=== PATIENT | male | born 1975 | race Caucasian/White ===

== ENCOUNTER 2020-12-10 08:29 | Day surgery (SDC) | payer SELFPAY ==
[~2020-12-10] VITALS: Ht 188 cm; Wt 163.0 kg
[2020-12-10 09:00] VITALS: BP 154/105; PULSE 66; TEMP 97.8
[2020-12-10] MEDS ORDERED: OMEGA-3 1000 MG1 CAP PO (09:03)
[2020-12-10] MEDS ORDERED: ASPIRIN 81M81 MG/TA2 PO (09:03)
--- NOTE | 2020-12-10 09:15 | NUR ---
The patient's blood pressure is elevated on admission and Vanessa Earl CRNA was notified and has no further orders for the nurse at this time.
[2020-12-10] MEDS ORDERED: NORCO 325 MG-7.1 TAB PO (11:38)
[2020-12-10 12:33] VITALS: BP 152/90; PULSE 51; TEMP 98
--- NOTE | 2020-12-10 12:33 | NUR ---
The patient arrived back to [facility] from the recovery room at this time. The patient appears drowsy but arouses easily to his name. The patient has oxygen in place at 2L per nasal cannula. Post operative vital signs were started at this time. The patient's is at bedside at this time. Call light is within reach. Will continue to monitor the patient.
[2020-12-10 12:48] VITALS: BP 145/90; PULSE 52
--- NOTE | 2020-12-10 12:48 | NUR ---
The patient appears more alert at this time. The patient is eating and drinking the good and drink brought by his . Call light is within reach. Vital signs appear stable. Will continue to monitor the patient.
--- NOTE | 2020-12-10 13:03 | NUR ---
The patient had previously been weaned from 2L to 1L and was at this time weaned down to room air. The patient's remains at his bedside. The patient denies any pain at this. Call light is within reach. Will continue to monitor the patient.
[2020-12-10 13:05] VITALS: BP 151/88; PULSE 59
[2020-12-10 13:25] VITALS: BP 160/82; PULSE 64
--- NOTE | 2020-12-10 13:25 | NUR ---
The patient ambulated across the [place] to the bathroom with the stand by assistance of one nurse and appeared to tolerate the activity well. The patient voided without difficulty. The patient's dressing to his left groin was changed to mesh underwear, vasaline gauze and fluffed 4x4s.
--- NOTE | 2020-12-10 13:40 | NUR ---
Discharge instructions were reviewed with the patient and his at this time. They both verbalized understanding and have no questions for the nurse at this time. The patient's IV to his right hand was removed and a pressure dressing was applied to the site. The patient is dressed and ready to be escorted out.
--- NOTE | 2020-12-10 13:50 | NUR ---
The patient was escorted out via wheelchair to a private vehicle by ONI Perez. The patient's belongings and discharge paperwork were sent with him. The patient's is present to drive him home.
== END 2020-12-10 13:50 | disposition home or self-care (01) ==
LOC: SDCO 08:29 → EDBD 10:00 → SDCO 13:50
DX: A63.0 Anogenital (venereal) warts (principal); R59.0 Localized enlarged lymph nodes; N40.0 Benign prostatic hyperplasia without lower urinary tract symptoms; G47.33 Obstructive sleep apnea (adult) (pediatric); E66.01 Morbid (severe) obesity due to excess calories; I10 Essential (primary) hypertension; F17.210 Nicotine dependence, cigarettes, uncomplicated; Z68.41 Body mass index [BMI] 40.0-44.9, adult; Z20.822 Contact with and (suspected) exposure to COVID-19; Z79.82 Long term (current) use of aspirin
CPT/HCPCS: J0690; J2405; J2550; J2704; J3010; J7120